=== PATIENT | female | born 2000 | race Two or more races ===

== ENCOUNTER 2023-12-27 13:04 | Observation (INO) | payer MEDICAID, SELFPAY ==
[2023-12-27] VITALS (32 sets, daily range): BP systolic 105–143; BP diastolic 59–91; PULSE 72–104; RESP 16–18; TEMP 36.4–37.1; O2SAT 89–100
[2023-12-27] MEDS: Methylergonovine 0.2 MG/ML Ampul IM (12:38)
--- NOTE | 2023-12-27 12:49 | HP.PCM.OB_ITS ---
HPI - General General Date of Admission: 12/27/23 Date of Service: 12/27/23 Chief Complaint: No Care, Delivered at Home HPI Narrative HERMILA BEST, is a 23 F G2 now P2 who presents via squad to labor and delivery. Patient has had no care except she had an ultrasound at [facility] in [place] at approximately 12 weeks gestation which gave her a due date of approximately January 14. She is vague about other ultrasounds. She did not have insurance so she did not seek care; today she is approximately 37+ weeks gestation and began having labor at home. She delivered at home after approximately 1-1/2 hours of labor and called the squad. On the way to the hospital the placenta was delivered. The squad judah labs and started an IV saline lock. Apgars were assigned as /9 per the squad and minimal bleeding was noted upon presentation. Maternal Data Information Final SUZANNE: [birth year] Final SUZANNE Source: US <20 weeks Gestational age: 37+ weeks PFSH PFSH Allergy/AdvReac Type Severity Reaction Status Date / Time No Known Allergies Allergy Verified 12/27/23 12:26 no surgical history Social History (Updated 12/27/23 @ 12:[address] Jordan Alvarado MD) Smoking Status: Former smoker how long ago did patient quit smoking: Patient indicates that she vapes daily but does not use nicotine details: Denies alcohol use during substance use type: does not use History 2 Elective abortions Hx Para 1 Spontaneous abortions Hx # Term Pregnancies Ectopic pregnancies Hx # Pregnancies Multiple births # of living children ROS Constitutional Constitutional: Reports systems reviewed and no addt'l complaints, except as documented Vital Signs Vital Signs Vital Signs: 12/27/23 12:27 12/27/23 12:27 12/27/23 12:32 Pulse Rate 82 79 Blood Pressure BP Systolic BP Diastolic Pulse Ox 100 12/27/23 12:32 12/27/23 12:36 12/27/23 12:36 Pulse Rate 83 Blood Pressure BP Systolic BP Diastolic Pulse Ox 100 89 12/27/23 12:37 12/27/23 12:37 12/27/23 12:38 Pulse Rate 98 Blood Pressure 131/83 H BP Systolic 131 BP Diastolic 83 Pulse Ox 100 12/27/23 12:38 12/27/23 12:42 12/27/23 12:42 Pulse Rate 97 79 Blood Pressure BP Systolic BP Diastolic Pulse Ox 100 12/27/23 12:47 12/27/23 12:47 Pulse Rate 83 Blood Pressure BP Systolic BP Diastolic Pulse Ox 100 Physical Exam Narrative Afebrile, vital signs stable Const alert, oriented x3 and no apparent distress General Appearance: cooperative and comfortable HEENT normocephalic Neck full ROM General: trachea midline Resp normal respiratory effort Cardio regular rate and regular rhythm Narrative: Perineum intact, no evidence of lacerations from delivery. Minimal bleeding noted. Skin no rashes or lesions noted Neuro moves all extremities Psych mental status grossly normal, affect normal, speech normal and activity/motor behavior normal Labs Labs Labs: Antibody Screen Pending Hct Pending Hgb Pending Hep Bs Antigen Pending Hepatitis C Antibody Pending Assessment & Plan (1) No care in current in third trimester: (2) Normal vaginal delivery of second : PLAN: 37+ week intrauterine with no care who delivered baby at home and placenta in ambulance. Mother and baby doing well. No lacerations noted. Bleeding minimal. A single dose of Methergine was given to minimize bleeding and labs were drawn and sent. Patient considering adoption of baby. Plan social service consult and will start routine care.
[2023-12-27 12:58] LABS: Absolute Lymphocyte Count 1.54 X10^3/uL (0.83-4.51); Absolute Neutrophil Count 9.3 X10^3/uL (2.0-7.7); Basophil# 0.03 X10^3/uL; Basophil% 0.3 % (0-1); Eosinophil# 0.04 X10^3/uL; Eosinophils% 0.3 % (0-5); Hematocrit 31.4 % (37-47); Hemoglobin 9.1 g/dL (12.0-15.0); Lymphocyte # 1.54 X10^3/ul (0.83-4.51); Lymphocyte % 13.1 % (19-41); Mean Corpuscular Hgb 21.8 pg (27.0-32.0); Mean Corpuscular Volume 75.3 fL (81-99); Mean Platelet Vol. 11.4 fl (6.2-12.0); Monocyte# 0.77 X10^3/uL; Monocyte% 6.6 % (0-10); NRBC Flagged by Analyzer 0.2 % (0-5); Neutrophil % 79.2 % (47-70); Platelet Count 241 K/mm3 (150-450); RBC Distribution Width CV 17.1 % (11.6-14.6); RBC Distribution Width SD 46.5 fl (35.1-43.9); Red Blood Count 4.17 M/mm3 (4.2-5.4); White Blood Count 11.7 K/mm3 (4.4-11.0)
[2023-12-27 13:42] LABS: HIV - WCH Non-Reactive (Nonreactive); Rubella IgG Reactive (Nonreactive); Syphilis Antibodies Non-reactive
[2023-12-27 13:50] LABS: Hepatitis B Surface Antigen Non-Reactive (Nonreactive); Hepatitis C Antibody Non-Reactive (Nonreactive)
--- NOTE | 2023-12-27 13:55 | NURSING ---
assigned per EMS
[2023-12-27 15:38] LABS: Amphetamine Urine VISTA NEGATIVE (<1000 ng/mL); Barbiturate Urine VISTA NEGATIVE (< 200 ng/mL); Benzodiazepine Urine VISTA NEGATIVE (< 200 ng/mL); Cocaine Urine VISTA NEGATIVE (< 300 ng/mL); Ecstacy Urine VISTA NEGATIVE (< 500 ng/mL); Methadone Urine VISTA NEGATIVE (< 300 ng/mL); PCP Urine VISTA NEGATIVE (< 25 ng/mL); THC Urine VISTA NEGATIVE (< 50 ng/mL); Vista UDS pH Range 7
[2023-12-27 20:34] LABS: Mucous, Urine 0 SEEN /hpf (<or=2+)
[2023-12-27 20:45] LABS: Color, Urine Yellow (Yellow); Glucose, Dipstick Normal (Normal); Ketone-Dipstick 15 mg/dl (Negative); Leukocyte Esterase-Dipstick 25 /ul (Negative); Nitrite-Dipstick Negative (Negative); Occult Blood-Urine 250 /ul (Negative); Protein-Dipstick 30 mg/dl (Negative); Urine Bilirubin Dipstick Negative (Negative); Urine Clarity Sl. Cloudy (Clear); Urine Urobilinogen Normal (Normal); Urine pH 6.5 (5.0 - 8.0)
[2023-12-27 21:25] LABS: Bacteria RARE /hpf (None Seen); Red Blood Cells-Urine > 100 SEEN /hpf (0-5); Squamous Epithelial Cells - UA 0-5 SEEN /hpf (5-10); White Blood Cells 0-5 SEEN /hpf (0-5)
--- NOTE | 2023-12-27 23:18 | NURSING ---
place by EMT before arrival
[2023-12-28 04:58] VITALS: BP 100/55; PULSE 77; TEMP 36.4
[2023-12-28 08:58] VITALS: BP 120/65; PULSE 75
[2023-12-28 09:03] VITALS: BP 120/65; PULSE 75; RESP 16; TEMP 36.5; O2SAT 99
--- NOTE | 2023-12-28 09:59 | DS.PCM_ITS ---
Providers Date of Admission: 12/27/23 Reason For Visit: POST - HOME DELIVERY Diagnosis Discharge Diagnosis (1) No care in current in third trimester: Status: Acute Code(s): O09.33 - Supervision of with insufficient care, third trimester (2) Normal vaginal delivery of second : Status: Acute Code(s): O80 - Encounter for full-term uncomplicated delivery Hospital Course Summary of Care Provided Hospital Course: 37+ week intrauterine with no care who delivered baby at home and placenta in ambulance. Mother and baby doing well. No lacerations noted. Bleeding minimal. A single dose of Methergine was given to minimize bleeding and labs were drawn and sent. Patient considering adoption of baby. Patient did well and it was felt that she was ready for discharge on day #1. Patient considering IUD for control and will discuss at her visit. Physical Exam Narrative Minimal vaginal bleeding reported since delivery. ABG / Lab / Microbiology Data 12/27/23 12:40 Laboratory: Laboratory Results - last 24 hr 12/27/23 12:40: WBC 11.7 H, RBC 4.17 L, Hgb 9.1 L, Hct 31.4 L, MCV 75.3 L, MCH 21.8 L, MCHC 29.0 L, RDW Std Deviation 46.5 H, RDW Coeff of Panchito 17.1 H, Plt Count 241, MPV 11.4, Immature Gran % (Auto) 0.500, Neut % (Auto) 79.2 H, Lymph % (Auto) 13.1 L, [place] % (Auto) 6.6, Eos % (Auto) 0.3, Baso % (Auto) 0.3, Absolute Neuts (auto) 9.3 H, Absolute Lymphs (auto) 1.54, Nucleated RBC % 0.2, Syphilis Total Ab Non-reactive, Hep Bs Antigen Non-Reactive, Hepatitis C Antibody Non- Reactive, HIV 1&2 Antibody Non-Reactive, Rubella IgG Antibody Reactive, Blood Type B POSITIVE, Antibody Screen NEGATIVE 12/27/23 14:55: Urine Opiates Screen NEGATIVE, Urine Methadone Screen NEGATIVE, Ur Barbiturates Screen NEGATIVE, Ur Phencyclidine Scrn NEGATIVE, Ur Amphetamines Screen NEGATIVE, MDMA (Ecstasy) Screen NEGATIVE, U Benzodiazepines Scrn NEGATIVE, Urine Cocaine Screen NEGATIVE, U Cannabinoids Screen NEGATIVE, Ur Drug Screen Comment 12/27/23 20:25: Urine Color Yellow, Urine Clarity Sl. Cloudy, Urine pH 6.5, Ur Specific [place] 1.010, Urine Protein 30 H, Urine Glucose (UA) Normal, Urine Ketones 15 H, Urine Occult Blood 250 H, Urine Nitrite Negative, Urine Bilirubin Negative, Urine Urobilinogen Normal, Ur Leukocyte Esterase 25 H, Urine RBC > 100 SEEN, Urine WBC 0-5 SEEN, Ur Squamous Epith Cells 0-5 SEEN, Urine Bacteria RARE, Urine Mucus 0 SEEN Microbiology: Microbiology 12/27/23 14:55 Urine, Clean Catch Chlamydia/Neisseria (PCR) - Final D/C Instructions Discharge Diet: No restrictions Discharge Activity: Return to Normal Activity, May Drive, May Shower and May Take a Tub Bath May resume sexual activity in: 4 weeks Call your doctor if your incision/area has: Increased Pain/ Swelling and Foul Smelling Discharge Call your doctor if you observe: Fever of 101 or Higher, Inability to urinate and Inability to have a bowel movement Please Follow Up With: Justine Rios MD When: 4 to 6 weeks Meaningful Use Info Meaningful Use Meaningful Use Diagnoses (Choose all that apply): None applicable Ischemic Stroke Statin Dosing Therapy Reference: STATIN DOSE THERAPY REFERENCE: * Patients > 75 years receive moderate or high dose statin therapy. * Patients 75 years or YOUNGER should receive HIGH intensity statin dose unless contraindicated. You will be required to document reason for non-treatment if statin daily dose does not meet guidelines. HIGH DOSE STATIN THERAPY DAILY Atorvastatin > than or = to 40 mg Rosuvastatin > than or = to 20 mg Amlodipine + Atorvastatin > than or = to 2.5/40 mg Ezetimibe + Simvastatin 10/80 mg Simvastatin 80mg Discharge Plan Admission Admit Date/Time: 12/27/23 13:04 Primary Reason for Your Visit: Vaginal Delivery Attending Provider: Jordan Alvarado Disposition Disposition (needs filled in before D/C Order can be placed): Home, Self Care
[2023-12-28] MEDS: Ibuprofen 600 MG Tablet PO (11:51)
[2023-12-28 13:25] VITALS: BP 109/70; PULSE 106; PULSE 113; RESP 16; TEMP 35.9; O2SAT 98
[2023-12-28 13:26] VITALS: PULSE 112; O2SAT 97
--- NOTE | 2023-12-28 13:29 | NURSING ---
1328-reviewed discharge instructions w pt. pt adopting baby out.
--- NOTE | 2023-12-28 14:15 | CASEMGMT ---
Labor and Delivery Lead Fabricator Date of Consult: 12/27/23 Time of Consult: 1340 Date of intervention: 12/27/23, 12/28/23 Time of intervention: ongoing Reason for consult: considering adoption History:? Mother of baby (NESSA Faulkner) is 23 year old female who is 2, para 1- now 2 following labor and delivery of female infant at home. HANNA received limited care during , she was seen at 12 weeks to confirm any clarify estimated due date of 01/14 at [facility] in [place]. HANNA who is currently residing with her mother reports that she did not tell anyone that she was . HANNA went into labor spontaneously and delivered baby at home with the assistance of her mother, Nancy. Soon after delivery flaquita was called. - Sw met with MOB, maternal grandma and Ernesto at bedside. Sw provided support and active listening. Sw provided MOB with space to make the decision that she felt was best for herself and for baby at this time. MOB provided brief medical information to sw. Throughout conversation MOB and grandma understandably tearful. - MOB she states that she did not receive care or deliver baby in the hospital because she does not have insurance. MOB states that the father of the baby is Demetri Llamas, who also father's her 11 month old son, Ernesto. MOB states that Demetri has been living in [place], [place] and does not support her or provide financially for Ernesto. MOB states that was not result of coercion, reporting that sexual relationship was consensual at that time, but BEVERLEY is not aware of . MOB states that due to lack of support, and finances HANNA feels that she is not in a place financially to care for another child. MOB reports that at this time she has chosen to formulate an adoption plan for baby. - Sw provided MOB with several different adoption agency information and gave MOB time to look through the resources. MOB informed sw that she would like sw to call [facility] and let them know that she is considering adoption. - Shona called [facility] and spoke to Tere, who made arrangements to present to hospital on 12/26 at 1530 to meet with MOB and grandma. [facility] presented to bedside and explained adoption process, answered all of MOB/ grandma's questions and provided MOB with several adoptive family profiles for MOB to look through. 12/28/23: Sw presented to bedside and met with MOB and maternal grandma. MOB reports that she is going to be following up with Tere from [facility] today. MOB reports that after looking through the profiles that Tere provided her with yesterday she has one family chosen that she would like more information on. Tere and an finance attorney from [facility] met with MOB at bedside. MOB states that she would like to move forward with the family she has as her first pick. Tere made phone call to potential adoptive family and a Facetime is scheduled for this evening. - MOB is medically ready for discharge. - Temporary custody of child paperwork signed and sw received copy of it, placed in baby's chart at this time. - Home packet paperwork also completed by MOB and clinical medical assistant. [facility]. - MOB, [facility] and hospital staff in agreement that will remain a patient at [facility] for the 72 hours before permanent surrender can happen, and MOB and potential adoptive family meet and get to know each other. Assessment:? MOB was tearful at time of admission. MOB understandably scared and nervous due to birthing baby at home and uncertain of adoption decision. Once options, information and additional conversations had with MOB and adoption agency, MOB appeared to be more at ease and comfortable regarding the decision to pursue and adoption plan for baby. MOB has a lot of support found in her mother, who has been at MOB's bedside throughout admission. Maternal grandma also expressing sadness due to the fact that she did not know MOB was , and went the whole nine months without talking to anyone about the burden she was carrying. Grandma extremely supportive of MOB and her decision, stating that whatever decision MOB makes she would support her of. MOB and grandma asking appropriate questions and receptive to ongoing support and education. Plan:??? baby will remain admitted as a patient at [facility] until 72 hours has passed since MOB signed paperwork with [facility]. That timeframe would put us at 5:00 12/29 evening. Hospital staff, adoption agency and MOB with understanding and plan that hospital will be caregiver to baby until a definitive adoption plan has been formulated, with the goal being 12/29. Sw will remain involved throughout admission to provide support and assist with all discharge planning needs. Stephanie Fowler, MESSAGE AND DELIVERY SERVICE PRICER, MOLDED GRID AND PARTS INSPECTOR
--- NOTE | 2024-01-19 12:35 | NURSING ---
This patient delivered baby and placenta at home. Nurse mistakenly documented on delivery record which incurred a vaginal delivery cost for this patient. I removed this documentation to remove the charge from the account. Marycruz Krutz RN clinical meeting manager.
== END 2023-12-28 14:02 | disposition home or self-care (01) | DRG 955 ==
PROVIDERS: Admitting Provider Obstetrics & Gynecology; Visit Provider Obstetrics & Gynecology
DX: O80 Encounter for full-term uncomplicated delivery (principal); F17.290 Nicotine dependence, other tobacco product, uncomplicated; O99.335 Smoking (tobacco) complicating the puerperium; Z37.0 Single live birth
CPT/HCPCS: 96372; 36415; 59025; 59050; 80307; 81001; 85025; 86703; 86762; 86780; 86803; 86850; 86900; 86901; 87340; 87491; 87591; 99221; G0378